=== PATIENT | male | born 1930 | race African-American/Black ===

== ENCOUNTER 2017-08-28 11:20 | Inpatient (IN) | payer OTHER ==
[~2017-08-28] VITALS: Ht 175.3 cm; Wt 115.0 kg
[2017-08-28] VITALS (12 sets, daily range): BP systolic 90–127; BP diastolic 51–87; BMI 31.6
--- NOTE | ~2017-08-28 | CN ---
PATIENT NAME:ELISE CROWE MEDICAL RECORD: [id number] : [birth year] LOCATION:[facility]2305 ADMIT DATE: 08/28/17 ACCOUNT: [id number] CONSULTING PHYSICIAN: WILBER FORREST MD REFERRING PHYSICIAN: VALERIY BAH MD DATE OF CONSULTATION: 08/29/2017 DIAGNOSES: 1. Aspiration pneumonia and septic shock. 2. UTI. 3. Atrial fibrillation with rapid ventricular response. 4. Alzheimer dementia. HISTORY: This is a gentleman who is 86 years old and [place], who was transferred here secondary to aspiration pneumonia and UTI, found to have atrial fibrillation with rapid response, was given sotalol. He has since converted to sinus rhythm. PHYSICAL EXAMINATION: GENERAL APPEARANCE: Well-nourished, well-developed, appears stated age. Level of distress, comfortable. PSYCHIATRIC: Mental status, alert, normal affect. Orientation, oriented to time, place and person. EYES: Lids and conjunctiva, noninjected. No discharge, no pallor. ENT: Lips, teeth, gums, normal dentition. Oropharynx, no cyanosis, no pallor. NECK: Carotid arteries, bilateral normal upstroke, no bruits, no thrills. JUGULAR VEINS: No jugular venous pressure or distention. CERVICAL LYMPH NODES: Nontender, nonenlarged. THYROID: Not enlarged. Nontender. No nodules. LUNGS: Respiratory effort, unlabored. CHEST: Normal curvature. No thoracic deformity. No chest wall tenderness. Percussion, resonant. Auscultation, clear. No wheezes, no rales, no rhonchi. CARDIOVASCULAR: Precordial exam, nondisplaced. No heaves or pericardial thrills. Rate and rhythm, regular. Heart sounds, normal S1, normal S2. No S3, no gallop, no rub. Systolic murmur, not heard. Diastolic murmur, not heard. EXTREMITIES: No cyanosis, no edema. Peripheral pulses, full and equal in all extremities, except as noted. No bruits appreciated. ABDOMEN: Soft, nondistended. Normal aorta. No bruit. Nontender. No masses. Liver, nontender, no hepatomegaly. Spleen, nontender, no splenomegaly. MUSCULOSKELETAL: No joint tenderness. No joint swelling. No erythema. NEUROLOGICAL: Normal gait, normal strength, normal tone. SKIN: Warm and dry. OVERALL IMPRESSION: Atrial fibrillation. He was previously on a Cardizem drip. Given sotalol and converted to sinus rhythm. We will decrease his sotalol to 80 mg b.i.d. Discontinue Cardizem drip. No other cardiac workup or treatment is necessary at this time. TRANSINT:[id number] Voice Confirmation ID: [id number] DOCUMENT ID: [id number] CONSULT REPORT [id number] ELISE CROWE, WILBER FREGOSO at 1025 CC: [id number] DICTATION DATE: 08/29/17 1212 SOURCING COORDINATOR: 08/29/17 1512 DIS IN 09/01/17 [id number] [place] [address]
--- NOTE | ~2017-08-28 | EC ---
PATIENT:ELISE CROWE DATE OF SERVICE: 08/28/17 SEX: M MEDICAL RECORD: [id number] DATE OF : [birth year] LOCATION:[facility] D.230 AGE OF PATIENT: 86 ADMISSION DATE: 08/28/17 REFERRING PHYSICIAN: INTERPRETING PHYSICIAN: WILBER RIOS MD ECHOCARDIOGRAM REPORT ECHO CHARGES 4 ECHO COMPLETE CLINICAL DIAGNOSIS: HX OF AVR/AIFB ECHOCARDIOGRAPHIC MEASUREMENTS (adult normal given) AC root (d.<3.7cm) 3.7 cm LV Septum d (<1.2 cm> 2.1 cm Valve Excursion 1.6 cm LV Septum (systole) 2.3 cm Left Atria (s.<4.0cm> 3.1 cm LVPW d(<1.2cm) 1.8 cm RV (d.<2.3cm) 4.4 cm LVPW (sytole) 2.1 cm LV diastole(<5.6CM) 3.5 cm MV E-F(>70mm/sec) cm LV systole 2.3 cm LVOT Diameter 2.2 cm MV exc.(>10mm) cm Est.ejection fraction (50-75%) % Pericardial Effusion Y DOPPLER: LVIT cm/sec A 64.0 cm/sec E 35.0 cm/sec LA cm/sec RVSP 19 mmHg LVOT 81 cm/sec AOP1/2T m/s Asc. Ao 103 cm/sec RVOT 53 cm/sec RA cm/sec PA 81 cm/sec AV Gradient Peak 4.27 mmHg AV Mean 1.89 mmHg AV Area 3.5 cm MV Gradient Peak 3.42 mmHg MV Mean 1.07 mmHg MV Area cm COMMENTS: Thai Masseur: Alina MYERS Lamination Technician: 1 Dr. Rios TAPE# PACS DATE OF SERVICE: 08/29/2017 Echocardiogram FINDINGS: 1. Left ventricular chamber size is within normal limits. Left ventricular systolic function is normal. Overall ejection fraction estimated at 55%. 2. Left atrium, right atrium, right ventricle chamber sizes are within normal limits. 3. Valvular structures have normal structure and motion. ECHOCARDIOGRAM REPORT [id number] ELISE CROWE 4. Doppler interrogation only reveals mild aortic insufficiency. No other valvular insufficiency or stenosis. 5. No evidence of pericardial effusion or left ventricular thrombus. TRANSINT:[id number] Voice Confirmation ID: [id number] DOCUMENT ID: [id number] WILBER RIOS MD at 1025 CC: [id number] DICTATION DATE: 08/30/17 1026 BUILDING COORDINATOR: 08/30/17 1124 DIS IN 09/01/17 [address] [place] [address]
[2017-08-28 17:56] LABS: HEMATOCRIT 23.5 % (42.0-54.0); HEMOGLOBIN 7.9 g/dL (13.5-17.5); MCHC 33.6 g/dL (31.0-37.0); MCV 86.4 fL (80.0-100.0); MEAN PLATELET VOLUME 11.9 fL (7.4-10.4); PLATELET COUNT 173 10x3/uL (130-400); RBC 2.72 10x6/uL (4.20-6.10); RDW 16.1 % (11.5-14.5); WBC 30.7 10x3/uL (4.8-10.8)
[2017-08-28 18:02] LABS: APPEARANCE CLEAR (CLEAR); BILIRUBIN NEGATIVE (NEGATIVE); COLOR DK YELLOW (YELLOW); GLUCOSE NEGATIVE (NEGATIVE); INR 1.37 (0.85-1.17); NITRITE NEGATIVE (NEGATIVE); PROTEIN TRACE mg/dL (NEGATIVE); PROTIME 16.4 SECONDS (11.6-15.0); SPECIFIC GRAVITY 1.025 (1.005-1.020); UROBILINOGEN NORMAL (NORMAL)
[2017-08-28 18:03] LABS: KETONE SMALL mg/dL (NEGATIVE)
[2017-08-28 18:05] LABS: BACTERIA MODERATE /hpf (NONE SEEN); YEAST >1+ /hpf (NONE SEEN)
[2017-08-28 18:07] LABS: CALCIUM OXALATE CRYSTALS RARE /hpf (NONE SEEN)
[2017-08-28 18:15] LABS: ALBUMIN 2.5 g/dL (3.4-5.0); BILIRUBIN - TOTAL 0.46 mg/dL (0.2-1.3); CALCIUM 8.2 mg/dL (8.5-10.1); CARBON DIOXIDE 26.8 mmol/L (21.0-32.0); CREATININE - SERUM 1.8 mg/dL (0.6-1.3); POTASSIUM - SERUM 4.8 mmol/L (3.5-5.1); PROTEIN - SERUM 5.1 g/dL (6.4-8.2)
[2017-08-28] MEDS ORDERED: ATIVAN1 MG PO (18:25)
[2017-08-28 18:27] LABS: D-DIMER-QUANTITATIVE 0.82 ug/mLFEU (0.20-0.54)
[2017-08-28] MEDS ORDERED: CYCLOBENZAPRINE10 MG PO (18:27)
[2017-08-28 18:28] LABS: BASOPHILS 1 % (0-2); LYMPHOCYTES 9 % (15-50); MONOCYTES 2 % (2-11); NEUTROPHILS 88 % (40-80)
[2017-08-28] MEDS ORDERED: MOBIC7.5 MG PO (18:28)
[2017-08-28] MEDS ORDERED: DOXAZOSIN MESYLATE (18:28)
[2017-08-28 18:29] LABS: PLATELET ESTIMATE NORMAL
[2017-08-28] MEDS ORDERED: ARICEPT10 MG PO (18:29)
[2017-08-28] MEDS ORDERED: NAMENDA XR28 MG PO (18:29)
[2017-08-28] MEDS ORDERED: ZOLOFT100 MG PO (18:29)
[2017-08-28] MEDS ORDERED: METHYLNALTREXONE 150 MG (18:29)
[2017-08-28 18:30] LABS: POIKILOCYTOSIS 1+; POLYCHROMASIA 1+
[2017-08-28] MEDS ORDERED: TROSPIUM CHLORI20 MG PO (18:30)
[2017-08-28 18:31] LABS: TARGET CELLS 1+
[2017-08-28] MEDS ORDERED: ZYRTEC10 MG PO (18:31)
[2017-08-28] MEDS ORDERED: CELEBREX200 MG PO (18:31)
[2017-08-28] MEDS ORDERED: TESSALON PERLE100 MG PO (18:32)
[2017-08-28] MEDS ORDERED: CENTRUM SILVER1 TA1 PO (18:32)
[2017-08-28] MEDS ORDERED: GLUCOSAMINE & C1 CAP PO (18:32)
[2017-08-28] MEDS ORDERED: OMEGA 3 FISH OI1 CAP PO (18:33)
[2017-08-29] VITALS (42 sets, daily range): BP systolic 74–159; BP diastolic 23–98
[2017-08-29 03:30] LABS: HEMOGLOBIN 6.3 g/dL (13.5-17.5); RBC 2.19 10x6/uL (4.20-6.10); WBC 30.4 10x3/uL (4.8-10.8)
[2017-08-29 03:31] LABS: BASOPHILS 0.6 % (0-2); EOSINOPHILS 0.1 % (0-7); HEMATOCRIT 19.4 % (42.0-54.0); IMMATURE GRANULOCYTES 4.6 % (0-5); MCH 28.8 pg (26.0-34.0); MCHC 32.5 g/dL (31.0-37.0); MCV 88.6 fL (80.0-100.0); MEAN PLATELET VOLUME 11.8 fL (7.4-10.4); MONOCYTES 9.8 % (2-11); NEUTROPHILS 65.9 % (40-80); PLATELET COUNT 148 10x3/uL (130-400); RDW 17.1 % (11.5-14.5)
[2017-08-29 03:40] LABS: CALCIUM 7.3 mg/dL (8.5-10.1)
[2017-08-29 03:41] LABS: ANION GAP 24.7 mmol/L (8-16); CARBON DIOXIDE 19.3 mmol/L (21.0-32.0); CREATININE - SERUM 2.6 mg/dL (0.6-1.3)
[2017-08-29 10:27] LABS: HEMOGLOBIN 9.4 g/dL (13.5-17.5)
[2017-08-29 10:28] LABS: HEMATOCRIT 28.4 % (42.0-54.0)
[2017-08-29 13:24] LABS: HEMOGLOBIN 8.7 g/dL (13.5-17.5)
[2017-08-30] VITALS (94 sets, daily range): BP systolic 79–136; BP diastolic 3–87; BMI 34.5
[2017-08-30 04:23] LABS: BASOPHILS 2.7 % (0-2); EOSINOPHILS 0.1 % (0-7); HEMATOCRIT 29.1 % (42.0-54.0); HEMOGLOBIN 10.1 g/dL (13.5-17.5); IMMATURE GRANULOCYTES 0.8 % (0-5); LYMPHOCYTES 55.2 % (15-50); MCH 27.5 pg (26.0-34.0); MCHC 34.7 g/dL (31.0-37.0); MCV 79.3 fL (80.0-100.0); NEUTROPHILS 37.2 % (40-80); RBC 3.67 10x6/uL (4.20-6.10); RDW 17.6 % (11.5-14.5); WBC 13.3 10x3/uL (4.8-10.8)
[2017-08-30 04:24] LABS: PLATELET COUNT 121 10x3/uL (130-400)
[2017-08-30 04:44] LABS: INR 2.41 (0.85-1.17); PROTIME 25.2 SECONDS (11.6-15.0)
[2017-08-30 04:45] LABS: APTT 36.5 SECONDS (22.8-39.4)
[2017-08-30 05:04] LABS: ALBUMIN 2.1 g/dL (3.4-5.0); ANION GAP 23.7 mmol/L (8-16); BILIRUBIN - DIRECT 0.62 mg/dL (0.00-0.30); BILIRUBIN - INDIRECT 0.78 mg/dL (0.00-1.00); BILIRUBIN - TOTAL 1.4 mg/dL (0.2-1.3); CARBON DIOXIDE 22.1 mmol/L (21.0-32.0); MAGNESIUM - SERUM 2.7 mg/dL (1.8-2.4); PHOSPHOROUS 6.2 mg/dL (2.5-4.9); POTASSIUM - SERUM 4.8 mmol/L (3.5-5.1); PROTEIN - SERUM 4.7 g/dL (6.4-8.2); VANCOMYCIN - TROUGH 25.6 ug/mL (10.0-20.0)
[2017-08-30 05:14] LABS: CALCIUM 6.8 mg/dL (8.5-10.1); CREATININE - SERUM 3.3 mg/dL (0.6-1.3)
[2017-08-30 05:20] LABS: TROPONIN-I 3.047 ng/mL (0.000-0.060)
[2017-08-30 10:14] LABS: HEMOGLOBIN 10.1 g/dL (13.5-17.5)
[2017-08-30 17:46] LABS: HEMATOCRIT 28.2 % (42.0-54.0); HEMOGLOBIN 9.6 g/dL (13.5-17.5)
[2017-08-31] VITALS (93 sets, daily range): BP systolic 64–128; BP diastolic 32–92; Ht 175.3 cm; Wt 115.0 kg
[2017-08-31 07:02] LABS: ALBUMIN 1.7 g/dL (3.4-5.0)
[2017-08-31 07:03] LABS: BILIRUBIN - TOTAL 1.61 mg/dL (0.2-1.3)
[2017-08-31 07:04] LABS: PROTEIN - SERUM 3.6 g/dL (6.4-8.2)
[2017-08-31 07:05] LABS: VANCOMYCIN - RANDOM 30.4 ug/mL (10.0-20.0)
[2017-08-31 07:06] LABS: CREATININE - SERUM 4.1 mg/dL (0.6-1.3)
[2017-08-31 07:07] LABS: ANION GAP 28.1 mmol/L (8-16); CARBON DIOXIDE 22.4 mmol/L (21.0-32.0); POTASSIUM - SERUM 5.5 mmol/L (3.5-5.1)
[2017-08-31 07:09] LABS: CALCIUM 5.8 mg/dL (8.5-10.1)
[2017-08-31 07:37] LABS: HEMATOCRIT 25.9 % (42.0-54.0); HEMOGLOBIN 8.9 g/dL (13.5-17.5); MCH 28.3 pg (26.0-34.0); MCHC 34.4 g/dL (31.0-37.0); MCV 82.5 fL (80.0-100.0); PLATELET COUNT 75 10x3/uL (130-400); RBC 3.14 10x6/uL (4.20-6.10); RDW 17.8 % (11.5-14.5); WBC 11.4 10x3/uL (4.8-10.8)
[2017-08-31 07:44] LABS: ANISOCYTOSIS OCC; EOSINOPHILS 1 % (0-7); LYMPHOCYTES 26 % (15-50); MONOCYTES 21 % (2-11); NEUTROPHILS 43 % (40-80); PLATELET ESTIMATE DECREASED; ROULEAUX OCC; SMUDGE CELLS OCC; TEAR DROP CELLS 1+
[2017-08-31 11:05] LABS: HEMATOCRIT 27.6 % (42.0-54.0); HEMOGLOBIN 9.9 g/dL (13.5-17.5); LYMPHOCYTES 55.1 % (15-50); MCH 30.1 pg (26.0-34.0); MCHC 35.9 g/dL (31.0-37.0); MCV 83.9 fL (80.0-100.0); MEAN PLATELET VOLUME 11.9 fL (7.4-10.4); NEUTROPHILS 42.4 % (40-80); PLATELET COUNT 53 10x3/uL (130-400); RBC 3.29 10x6/uL (4.20-6.10); RDW 19.8 % (11.5-14.5); WBC 23.7 10x3/uL (4.8-10.8)
[2017-08-31 11:10] LABS: APTT 40.4 SECONDS (22.8-39.4); INR 2.52 (0.85-1.17); PROTIME 26.5 SECONDS (11.6-15.0)
[2017-08-31 13:26] LABS: HEMATOCRIT 25.7 % (42.0-54.0); HEMOGLOBIN 9.2 g/dL (13.5-17.5)
[2017-09-01] VITALS (21 sets, daily range): BP systolic 94–122; BP diastolic 42–89
[2017-09-01 06:28] LABS: ANION GAP 22.5 mmol/L (8-16); CARBON DIOXIDE 26.8 mmol/L (21.0-32.0); CREATININE - SERUM 4.6 mg/dL (0.6-1.3); POTASSIUM - SERUM 5.3 mmol/L (3.5-5.1); VANCOMYCIN - RANDOM 29.6 ug/mL (10.0-20.0)
[2017-09-01 06:41] LABS: CALCIUM 5.4 mg/dL (8.5-10.1)
[2017-09-01 06:48] LABS: HEMOGLOBIN 8.2 g/dL (13.5-17.5); MCH 29.5 pg (26.0-34.0); MCHC 35.7 g/dL (31.0-37.0); MCV 82.7 fL (80.0-100.0); MEAN PLATELET VOLUME 11.7 fL (7.4-10.4); PLATELET COUNT 59 10x3/uL (130-400); RBC 2.78 10x6/uL (4.20-6.10); RDW 17.6 % (11.5-14.5)
[2017-09-01 06:50] LABS: WBC 10.9 10x3/uL (4.8-10.8)
[2017-09-01 07:01] LABS: LYMPHOCYTES 19 % (15-50); MONOCYTES 8 % (2-11); NEUTROPHILS 69 % (40-80)
[2017-09-01 07:04] LABS: POIKILOCYTOSIS OCC
[2017-09-01 07:05] LABS: CRENATED CELLS OCC; PLATELET ESTIMATE DECREASED; POLYCHROMASIA OCC; TEAR DROP CELLS OCC
== END 2017-09-01 13:15 | DRG 871 ==
LOC: D.ICU 11:20
PROVIDERS: Internal Medicine Nephrology; Internal Medicine Pulmonary Disease
PROC: 5A12012 Performance of Cardiac Output, Single, Manual (ICD-10-PCS; principal; 2017-08-29)
PROC: 0BH17EZ Insertion of Endotracheal Airway into Trachea, Via Natural or Artificial Opening (ICD-10-PCS; 2017-08-29)
PROC: 5A1945Z Respiratory Ventilation, 24-96 Consecutive Hours (ICD-10-PCS; 2017-08-29)
DX: A41.9 Sepsis, unspecified organism (principal); R65.21 Severe sepsis with septic shock; K72.00 Acute and subacute hepatic failure without coma; J69.0 Pneumonitis due to inhalation of food and vomit; J96.22 Acute and chronic respiratory failure with hypercapnia; J96.21 Acute and chronic respiratory failure with hypoxia; R53.2 Functional quadriplegia; N39.0 Urinary tract infection, site not specified; D62 Acute posthemorrhagic anemia; S36.62XA Contusion of rectum, initial encounter; K56.7 Ileus, unspecified; N17.9 Acute kidney failure, unspecified; J98.11 Atelectasis; D68.9 Coagulation defect, unspecified; I46.9 Cardiac arrest, cause unspecified; I48.0 Paroxysmal atrial fibrillation; X58.XXXA Exposure to other specified factors, initial encounter; G30.9 Alzheimer's disease, unspecified; F02.80 Dementia in other diseases classified elsewhere, unspecified severity, without behavioral disturbance, psychotic disturbance, mood disturbance, and anxiety; E87.5 Hyperkalemia; Z66 Do not resuscitate; N18.9 Chronic kidney disease, unspecified